=== PATIENT | male | born 1960 | race Asian ===

== ENCOUNTER 2021-09-19 13:35 | Outpatient (CLI) | payer MEDICARE, MEDICAID | END 2021-09-19 13:36 | disposition critical access hospital (66) | LOC: EMS 13:35 | DX: Z76.89 Persons encountering health services in other specified circumstances (principal) | CPT/HCPCS: A0425; A0427 ==

== ENCOUNTER 2021-09-19 13:52 | Emergency (ER) | payer MEDICARE, MEDICAID ==
[2021-09-19] MEDS: SODIUM CHLORIDE 0.9% 1,000 ML IV STA ×2 (14:05→15:53)
--- NOTE | 2021-09-19 14:08 | ED Physician Documentation ---
History of Present Illness - Stated complaint Stated Complaint: HYPERGLYCEMIA - Chief complaint Chief Complaint: General - History obtained from History obtained from: Patient, EMS - Additonal information Additional information: The patient is brought to the emergency department by EMS for chief complaint of "found down". Medics report the patient was found on the floor in the back of [facility], where it was very cold. History initially was through somebody at [facility] interpreting through an acquaintance in [place]. Medics state that in route, the patient began to speak for himself. He has been without complaints, but does admit to drinking a large amount of alcohol. The patient is a diabetic, and states to me that he uses insulin, though it is not clear whether he has been able to use his insulin recently or not. He denies vomiting. He states he actually feels quite good and Is without complaints. No pain. No recent illness. Review of Systems Ten Systems: 10 systems reviewed and negative Constitutional: reports: Reviewed and negative Eyes: reports: Reviewed and negative Ears: reports: Reviewed and negative Nose: reports: Reviewed and negative Throat: reports: Reviewed and negative Cardiac: reports: Reviewed and negative Respiratory: reports: Reviewed and negative GI: reports: Reviewed and negative : reports: Reviewed and negative Skin: reports: Reviewed and negative Musculoskeletal: reports: Reviewed and negative Neurologic: reports: Altered mental status Psychiatric: reports: Reviewed and negative Endocrine: reports: Reviewed and negative Immunocompromised: reports: Reviewed and negative PD PAST MEDICAL HISTORY - Allergies Allergies/Adverse Reactions: Allergies Allergy/AdvReac Type Severity Reaction Status Date / Time Unable to Assess Allergy Verified 09/19/21 14:01 PD ED PE NORMAL - Vitals Vital signs reviewed: Yes - General General: No acute distress, Well developed/nourished, Other (Patient smells strongly of alcohol. He is awake, pleasant, and answers questions, though is heavily intoxicated) - HEENT HEENT: PERRL - Neck Neck: Supple, no meningeal sign - Cardiac Cardiac: RRR, No murmur, Strong equal pulses - Respiratory Respiratory: No respiratory distress, Clear bilaterally - Abdomen Abdomen: Soft, Non tender, Non distended - Derm Derm: Normal color, No rash, Other (Had some feet, as well as distal arms and legs, are very cold.) - Extremities Extremities: No deformity, No edema, No calf tenderness / cord - Neuro Neuro: Other (Heavily intoxicated. Moving all 4 extremities and no gross deficits, other than intoxication. Awake and answers questions.) - Psych Psych: Normal mood, Normal affect Results - Vitals Vitals: Oxygen O2 Source Room air - Labs Labs: Laboratory Tests 09/19/21 09/19/21 14:15 14:15 WBC 5.6 RBC 4.42 L Hgb 12.8 L Hct 38.2 L MCV 86.4 MCH 29.0 MCHC 33.5 RDW 12.3 Plt Count 180 MPV 10.0 Neut # (Auto) 4.1 Lymph # (Auto) 1.1 L [place] # (Auto) 0.3 Eos # (Auto) 0.0 Baso # (Auto) 0.0 Absolute Nucleated RBC 0.00 Nucleated RBC % 0.0 Sodium 138 Potassium 4.1 Chloride 103 Carbon Dioxide 22 Anion Gap 13.0 BUN 22 H Creatinine 1.2 Estimated GFR (MDRD) 68 L Glucose 349 H Calcium 8.5 Total Bilirubin 0.2 AST 16 ALT 12 Alkaline Phosphatase 83 Total Protein 7.2 Albumin 3.9 Globulin 3.3 Albumin/Globulin Ratio 1.2 Lipase 68 H Ethyl Alcohol 316.1 PD MEDICAL DECISION MAKING - ED course Complexity details: reviewed results, re-evaluated patient, considered different ial, d/w patient ED course: Patient was given a liter 0.9 normal saline and worked up with labs. He was found to have an elevated blood sugar at 349 and an alcohol level which is also over 300. The patient was stable in the emergency department, though heavily intoxicated. He was given a single IV dose of regular insulin which did improve his blood sugar to below 300. Patient was given 2 L of IV fluid in the ED. I felt he was stable for discharge home, as he was gradually improving, intoxication bell, and had not been found to have any other complications of either his intoxication or his diabetes. At this point, the patient is finishing IV fluids and his housemates from [facility] have been called and are working on a ride at this time. The patient will be discharged on their arrival. Departure - Departure Disposition: 01 Home, Self Care Clinical Impression: Hyperglycemia Acute alcohol intoxication Qualifiers: Complication of substance-induced condition: uncomplicated Qualified Code(s): F10.920 - Alcohol use, unspecified with intoxication, uncomplicated Condition: Stable Instructions: ED Hyperglycemia Diabetic, ED Alcohol Intoxication Comments: Your blood sugar was very high today. It is very important that you take your diabetes medications to avoid further complications from your diabetes. Please consider getting help with your drinking, also. Discharge Date/Time: 09/19/21 18:33
[2021-09-19 14:23] LABS: BASOPHILS % (AUTO) 0.4 %; EOSINOPHILS % (AUTO) 0.4 %; HCT - HEMATOCRIT 38.2 % (42.0-52.0); HGB - HEMOGLOBIN 12.8 g/dL (14.0-18.0); LYMPHOCYTES # (AUTO) 1.1 10^3/uL (1.5-3.5); LYMPHOCYTES % (AUTO) 19.9 %; MEAN CORPUSCULAR HGB CONC 33.5 g/dL (32.0-36.0); MEAN CORPUSCULAR VOLUME 86.4 fL (80.0-94.0); MONOCYTES # (AUTO) 0.3 10^3/uL (0.0-1.0); MONOCYTES % (AUTO) 5.2 %; NEUTROPHILS # (AUTO) 4.1 10^3/uL (1.5-6.6); NEUTROPHILS % (AUTO) 73.6 %; PLT - PLATELET COUNT 180 10^3/uL (130-450); RED BLOOD COUNT 4.42 10^6/uL (4.70-6.10); RED CELL DISTRIBUTION WIDTH 12.3 % (12.0-15.0); WHITE BLOOD COUNT 5.6 x10^3/uL (4.8-10.8)
[2021-09-19 14:33] LABS: ALBUMIN 3.9 g/dL (3.2-5.5); ALBUMIN/GLOBULIN RATIO 1.2 (1.0-2.2); BILIRUBIN,TOTAL 0.2 mg/dL (0.2-1.0); CALCIUM 8.5 mg/dL (8.5-10.3); CREATININE 1.2 mg/dL (0.6-1.2); ETOH - ETHANOL 316.1 mg/dL; POTASSIUM 4.1 mmol/L (3.5-5.0); TOTAL PROTEIN 7.2 g/dL (6.7-8.2)
[2021-09-19] MEDS ORDERED: INSULIN REGULAR HUMAN 300 UNIT/3 ML VIAL IVP ONE (15:47)
[2021-09-19] MEDS: INSULIN REGULAR HUMAN 100 UNIT/1 ML 10 ML MDV IVP ONE (16:00)
[2021-09-19 18:30] VITALS: BP 114/63
== END 2021-09-19 18:33 | disposition home or self-care (01) ==
LOC: EDBD → ED 13:52
DX: E13.65 Other specified diabetes mellitus with hyperglycemia (principal); F10.129 Alcohol abuse with intoxication, unspecified; Y90.8 Blood alcohol level of 240 mg/100 ml or more; Z79.4 Long term (current) use of insulin
CPT/HCPCS: 36415; 80053; 83690; 85025; 96360; 96361; 99283; 99284; G0480; J1815; 80320; 82009